=== PATIENT | female | born 1970 | race Caucasian/White ===

== ENCOUNTER → 2016-04-16 | Outpatient (CLI) | payer OTHER ==
--- NOTE | 2016-04-16 11:09 | MA ---
Screening Digital Mammogram With iCAD Analysis Clinical Indications: Routine screening. Technique: Standard cephalocaudal and mediolateral oblique projections were obtained. This examinatio n was processed by the iCAD computer aided detection system. Comparison: No prior studies are available for comparison. Breast density: Type B; Scattered fibroglandular densities. Findings: CAD was reviewed. There is a possible developing asymmetry in the anterior central left allison ast versus overlap of normal glandular elements. No suspicious microcalcifications are identified. Impression: Possible developing left breast asymmetry requires further evaluation, BI-RADS 0. Recommendation: Spot compression assessment of the left breast with ultrasound suggested if the abnor mality persists on diagnostic evaluation. [facility] will send a result letter to the patient. Negative mammography should not preclude additional workup of a clinically suspicious finding. The patient's information is entered into a reminder system with a target due date for her next mammo gram.
== END ==
LOC: BRMIMAGING 08:06
PROVIDERS: ATTEND Internal Medicine Hematology & Oncology
DX: Z12.31 Encounter for screening mammogram for malignant neoplasm of breast (principal); R92.8 Other abnormal and inconclusive findings on diagnostic imaging of breast; C43.59 Malignant melanoma of other part of trunk; C77.3 Secondary and unspecified malignant neoplasm of axilla and upper limb lymph nodes
CPT/HCPCS: G0202

== ENCOUNTER → 2016-04-30 | Outpatient (CLI) | payer OTHER ==
[~2016-04-30] MED LIST: GADOBUTROL 10 ML VIAL IVP ONE
== END ==
LOC: FIMAGING 07:53
PROVIDERS: ATTEND Internal Medicine Hematology & Oncology
DX: C43.9 Malignant melanoma of skin, unspecified (principal); Z12.89 Encounter for screening for malignant neoplasm of other sites
CPT/HCPCS: A9585

== ENCOUNTER → 2016-05-06 | Outpatient (CLI) | payer OTHER | LOC: BRMIMAGING 09:08 | PROVIDERS: ATTEND Internal Medicine Hematology & Oncology | DX: R92.2 Inconclusive mammogram (principal) | CPT/HCPCS: 76641-PO; G0206 ==

== ENCOUNTER → 2016-11-28 | Outpatient (CLI) | payer OTHER | LOC: FIMAGING 15:25 | PROVIDERS: ATTEND Internal Medicine Hematology & Oncology | DX: C43.9 Malignant melanoma of skin, unspecified (principal) | CPT/HCPCS: A9585 ==

== ENCOUNTER → 2018-06-22 | Outpatient (CLI) | payer OTHER | LOC: FIMAGING 07:49 | PROVIDERS: ATTEND Internal Medicine Hematology & Oncology | DX: Z12.89 Encounter for screening for malignant neoplasm of other sites (principal); C43.59 Malignant melanoma of other part of trunk; C77.3 Secondary and unspecified malignant neoplasm of axilla and upper limb lymph nodes | CPT/HCPCS: A9585 ==